=== PATIENT | male | born 1960 | race Caucasian/White ===

== ENCOUNTER 2017-05-25 08:42 | Outpatient (CLI) | payer BC ==
[2012-08-10 18:39] VITALS: BP 133/93
[2017-05-25 09:57] LABS: eGFR (African) > 60; eGFR (Non-African) > 60
== END 2017-05-25 08:44 ==
LOC: LAB 08:42
PROVIDERS: ATTEND Physician Assistant
DX: I10 Essential (primary) hypertension (principal); Z13.6 Encounter for screening for cardiovascular disorders
CPT/HCPCS: 36415; 80053; 80061

== ENCOUNTER → 2017-10-15 | Day surgery (SDC) | payer BC ==
[2012-08-10 18:39] VITALS: BP 133/93
[~2017-10-15] MED LIST: LACTATED RINGERS 1,000 ML IV.SOLN IV ONE; LIDOCAINE HCL/PF 2% 100 MG/5 ML VIAL IJ ONE; PROPOFOL 500 MG/50 ML VIAL IV ONE; SALINE FLUSH 10 ML DISP.SYRIN IVF ONE
--- NOTE | 2017-10-15 15:32 | GI Report ---
REFERRING PHYSICIAN: ALICIA Carter NURSE CHEMICAL DEPENDENCY: Cruz Kumari MD PROCEDURE MEDICATION: Propofol as per anesthesia. INDICATIONS: This 57-year-old man is referred for a high-risk screening. Patient's grandparents have had colon cancer. His daughter has inflammatory bowel disease and has had a total colectomy. He denies any bleeding. Family history , his father also had lung cancer. PROCEDURE PERFORMED: Colonoscopy. PROCEDURE: An Olympus video colonoscope was advanced to the rectum and slowly advanced all the way to the cecum. The appendiceal orifice and terminal ileum looked normal. No evidence of obvious inflammatory bowel disease. On slow withdrawal , the cecum, ascending colon, and transverse colon with no obvious intraluminal lesions noted. The descending colon and sigmoid colon with some redundancy, no obvious intraluminal lesions noted going back and forth through there several times. Retroflexion of the rectum was normal. Patient tolerated the procedure well. FINDINGS: 1. Normal-appearing mucosa. 2. No polyps. 3. No evidence of inflammatory bowel disease at present. RECOMMENDATIONS: 1. Continue high-fiber diet. 2. Consider re-looking at his colon in 5 years because of high-risk family history. cc: [facility] Carter [facility]
== END ==
LOC: OPSURG 09:57
PROVIDERS: ATTEND Internal Medicine Gastroenterology
DX: Z12.11 Encounter for screening for malignant neoplasm of colon (principal)
CPT/HCPCS: 45378; J2001; J2704; J7120; S1016